=== PATIENT | female | born 1955 | race Caucasian/White ===

== ENCOUNTER 2020-10-05 20:00 | Emergency (ER) | payer BC ==
[~2020-10-05] VITALS: Ht 170.2 cm; Wt 72.6 kg
[2020-10-05 20:07] VITALS: BP_SYST 132
--- NOTE | 2020-10-05 20:25 | NUR ---
Patient to ER bed 2 to gown for evaluation. Side rails up. Report given to MICHAEL Rowe.
[2020-10-05] MEDS ORDERED: IBUPROFEN 600 MG TABLET PO ONE (20:30)
[2020-10-05] MEDS ORDERED: ONDANSETRON 4 MG ODT TAB PO ONE (20:30)
--- NOTE | 2020-10-05 20:30 | NUR ---
PATIENT IS AWAKE AND ALERT. PATIENT C/O ABDOMINAL PAIN WITH N/V/D. PAIN STATED 10/05. VSS. NO SIGNS OF SOB OR ACUTE DISTRESS NOTED. WILL CONTINUE TO MONITOR.
--- NOTE | 2020-10-05 20:41 | NUR ---
PATIENT TO CT WITH PACKER DENTURE.
--- NOTE | 2020-10-05 21:00 | NUR ---
PATIENT BACK FROM CT.
[2020-10-05 21:01] LABS: BILIRUBIN,URINE NEGATIVE (NEGATIVE); BLOOD, URINE NEGATIVE (NEGATIVE); CLARITY/URINE CLEAR (CLEAR); COLOR,URINE YELLOW (YELLOW); GLUCOSE,URINE NEGATIVE (NEGATIVE); KETONES,URINE NEGATIVE (NEGATIVE); LEUKOCYTE ESTERASE ,URINE NEGATIVE (NEGATIVE); NITRITE, URINE NEGATIVE (NEGATIVE); PROTEIN URINE NEGATIVE (NEGATIVE); UROBILINOGEN,URINE 0.2 (0.2-1.0)
[2020-10-05 21:13] LABS: BACTERIA,URINE RARE /HPF (None Seen); MUCUS,URINE None Seen /LPF (None Seen); RBC,URINE 0-3 /HPF (0-3); WBC,URINE 0-3 /HPF (0-3)
[2020-10-05 21:29] LABS: BACTERIA,URINE RARE /HPF (None Seen); RBC,URINE 0-3 /HPF (0-3); WBC,URINE 0-3 /HPF (0-3)
[2020-10-05 21:30] LABS: MUCUS,URINE None Seen /LPF (None Seen)
[2020-10-05 21:32] LABS: BASOPHILS % (AUTO) 0.5 % (0.0-2.0); EOSINOPHILS # (AUTO) 0.2 K/uL (0.0-0.4); EOSINOPHILS % (AUTO) 1.8 % (0.0-4.0); HEMATOCRIT 39.8 % (36-48); HEMOGLOBIN 13.3 g/dL (12.0-16.0); LYMPHOCYTES # (AUTO) 3.2 K/uL (1.0-5.5); LYMPHOCYTES % (AUTO) 34.6 % (20.5-51.5); MEAN CORPUSCULAR HEMOGLOBIN 32 pg (27-31); MEAN CORPUSCULAR HGB CONC 33 % (32-36); MEAN CORPUSCULAR VOLUME 96 fL (79.0-98.0); MONOCYTES # (AUTO) 0.7 K/uL (0.0-1.0); MONOCYTES % (AUTO) 7.8 % (1.7-9.3); NEUTROPHILS # (AUTO) 5.1 K/uL (1.8-7.7); NEUTROPHILS % (AUTO) 55.3 % (40.0-70.0); PLATELET COUNT (AUTO) 237 K/uL (130-430); RED BLOOD CELL COUNT(AUTO) 4.13 MIL/uL (4.2-6.2); RED CELL DISTRIBUTION WIDTH 13.6 % (9.0-15.0); WHITE BLOOD COUNT (AUTO) 9.2 K/uL (4.8-10.8)
[2020-10-05 21:50] LABS: ANION GAP 6 (5-15); CALCIUM 9.3 mg/dL (8.4-11.0); CHLORIDE 104 mmol/L (98-107); CREATININE 1.07 mg/dL (0.55-1.30); GLUCOSE 118 mg/dL (70-99); POTASSIUM 4.5 mmol/L (3.5-5.1); SODIUM SERUM 139 mmol/L (136-145); UREA NITROGEN, BLOOD 17 mg/dL (8-21)
[2020-10-05 21:59] LABS: ALANINE AMINOTRANSFERASE 56 U/L (12-78); ALBUMIN 4.1 g/dL (3.4-4.8); AMYLASE 80 U/L (0-100); ASPARTATE AMINOTRANSFERASE 52 U/L (10-37); LACTATE DEHYDROGENASE 225 U/L (81-234); LIPASE 171 U/L (73-393); TOTAL BILIRUBIN 0.2 mg/dL (0.0-1.0)
--- NOTE | 2020-10-05 22:00 | NUR ---
PATIENT RESTING IN BED, WAITING FOR LAB RESULTS. VSS. WILL CONTINUE TO MONITOR.
[2020-10-05 22:14] LABS: INR 0.9 (0.8-1.2); PROTHROMBIN TIME 9.4 SECS (9.5-12.5)
[2020-10-05 22:16] LABS: GFR AFRICAN AMERICAN 66 mL/min (>90)
[2020-10-05 22:17] LABS: C-REACTIVE PROTEIN QUANT < 0.2 mg/dL (0-0.5)
[2020-10-05] MEDS ORDERED: ONDA-8 TL (23:00)
[2020-10-05 23:05] VITALS: BP_SYST 130
--- NOTE | 2020-10-05 23:05 | NUR ---
Patient given written and verbal discharge instructions and verbalizes understanding. ER MD LI discussed with patient the results and treatment provided. Patient in stable condition. ID arm band removed. Rx of ZOFRAN given. Patient educated on pain management and to follow up with PMD. Pain Scale 0/10. Opportunity for questions provided and answered. Medication side effect fact sheet provided.
== END 2020-10-05 23:05 | disposition home or self-care (01) ==
LOC: SED 20:00
DX: A05.9 Bacterial foodborne intoxication, unspecified (principal)
CPT/HCPCS: 36415; 74176; 76376; 80053; 81000; 81003; 81025; 82150; 83605; 83615; 83690; 84484; 84703; 85025; 85610; 85730; 86140; 99284; Q0162